=== PATIENT | female | born 1935 | race Caucasian/White ===

== ENCOUNTER 2018-04-25 11:39 | Outpatient (CLI) | payer MEDICARE ==
--- NOTE | 2018-04-25 14:45 | ULT ---
THYROID ULTRASOUND: HISTORY: History of thyroid nodule, seen incidentally on prior ultrasound. COMPARISON: None. FINDINGS: The right thyroid lobe measures 4.2 x 1.8 x 1 cm. There is a 1 cm cyst within the superior pole of t he right thyroid gland. No additional focal lesion is evident. The left thyroid lobe measures 4.2 x 1.7 x 1.4 cm. No focal thyroid lesion is identified. The thyroid isthmus measures 0.22 cm. No focal thyroid lesion is identified. IMPRESSION: Simple anechoic cyst within the superior pole of the right thyroid gland, consistent with a TI-RADS 2 lesion. POS: [facility]
== END 2018-04-25 11:40 | disposition home or self-care (01) ==
LOC: BICULT 11:39
PROVIDERS: ATTEND Internal Medicine Cardiovascular Disease
DX: E04.1 Nontoxic single thyroid nodule (principal)
CPT/HCPCS: 76536

== ENCOUNTER 2021-05-14 10:07 | Observation (INO) | payer MEDICARE ==
[2021-05-14 10:46] LABS: #Eosinphils 0.1 thou/uL (0.0-0.7); #Monocytes 0.8 thou/uL (0.11-0.59); #Neutrophils 9.9 thou/uL (1.40-6.50); %Basophils 0.4 % (0.0-1.0); %Eosinophils 0.9 % (0.0-10.0); %Lymphocytes 8.7 % (21.0-51.0); %Monocytes 6.7 % (0.0-10.0); %Neutrophils 83.4 % (42.0-75.0); Hemoglobin 11.4 g/dL (12.0-16.0); Mean Corpuscular HGB CONC 33.8 g/dL (32.0-36.0); Mean Corpuscular Hemoglobin 34.1 pg (27.0-31.0); Mean Platelet Volume 9.2 fL (7.4-10.4); Platelet Count 173 thou/uL (130-400); RBC Distribution Width 12.2 % (11.5-14.5); Red Blood Cell (RBC) Count 3.34 mill/uL (4.20-5.40); White Blood Cell (WBC) Count 11.9 thou/uL (4.8-10.8)
[2021-05-14 11:19] LABS: ALT (SGPT) 12 U/L (8-55); AST (SGOT) 11 U/L (5-34); Albumin 3.3 g/dL (3.4-4.8); Alkaline Phosphatase 85 U/L (40-110); Anion Gap 13 mmol/L (10-20); BUN (Urea Nitrogen) 36 mg/dL (9.8-20.1); Bilirubin, Total 0.5 mg/dL (0.2-1.2); CK (CPK) 25 U/L (29-168); Calc. Creatinine Clearance 0 mL/min (70-130); Calcium 9.2 mg/dL (7.8-10.44); Carbon Dioxide 25 mmol/L (23-31); Chloride 101 mmol/L (98-107); Globulin 2.8 g/dL (2.4-3.5); Glucose 389 mg/dL (83-110); Lipase Less than 4 U/L (8-78); Protein, Total 6.1 g/dL (5.8-8.1); Sodium 135 mmol/L (136-145)
[2021-05-14] MEDS ORDERED: HumaLOG 300 UNITS/3 ML VIAL SC PRN (12:01)
[2021-05-14] MEDS ORDERED: Senokot S 8.6-50 MG TAB PO PRN (12:01)
[2021-05-14] MEDS ORDERED: Dextrose 5% in Water 1,000 ML IV PRN (12:01)
[2021-05-14] MEDS ORDERED: Sodium Chloride 0.9% 1,000 ML IV SCH (12:01)
[2021-05-14] MEDS ORDERED: Guaifenesin DM 100-10/5 ML UDCUP PO PRN (12:01)
[2021-05-14] MEDS ORDERED: Ondansetron PF 4 MG/2 ML Vial IVP PRN (12:01)
[2021-05-14] MEDS ORDERED: Dextrose 50% Abboject 50 ML SYRINGE SLOW IVP PRN (12:01)
[2021-05-14] MEDS ORDERED: HumaLOG 300 UNITS/3 ML VIAL ONE (13:31)
[2021-05-14] MEDS: HumaLOG 300 UNITS/3 ML VIAL SC PRN ×2 (13:35→16:58)
[2021-05-14 18:38] VITALS: BMI 16.5
[2021-05-14] MEDS: cefTRIAXone\\ROCEPHIN 2 GM in Sodium Chloride 0.9% 100 ML IVPB SCH (19:08)
[2021-05-14] MEDS ORDERED: Rosuvastatin 20 MG TAB PO SCH (21:00)
[2021-05-14] MEDS: Metoprolol Tartrate 25 MG TAB PO SCH (21:17)
[2021-05-14] MEDS: Clindamycin/D5W 600 MG in Premix Bag 1 BAG IVPB SCH (21:19)
[2021-05-14 22:14] LABS: SARS-CoV-2 NAA Rapid Test Not Detected (NotDetected)
[2021-05-14] MEDS: Lantus 1000 UNITS/10 ML VIAL SC SCH ×2 (22:42→23:24)
[2021-05-15] MEDS: HumaLOG 300 UNITS/3 ML VIAL SC PRN ×3 (04:41→18:17)
[2021-05-15] MEDS: Clindamycin/D5W 600 MG in Premix Bag 1 BAG IVPB SCH ×2 (05:59→15:09)
[2021-05-15 07:46] LABS: #Eosinphils 0.2 thou/uL (0.0-0.7); #Lymphocytes 1.1 thou/uL (1.20-3.40); #Monocytes 1.3 thou/uL (0.11-0.59); #Neutrophils 9.7 thou/uL (1.40-6.50); %Basophils 0.3 % (0.0-1.0); %Eosinophils 1.6 % (0.0-10.0); %Lymphocytes 9.2 % (21.0-51.0); %Monocytes 10.2 % (0.0-10.0); %Neutrophils 78.6 % (42.0-75.0); Hemoglobin 10.3 g/dL (12.0-16.0); Mean Corpuscular HGB CONC 32.5 g/dL (32.0-36.0); Mean Platelet Volume 9.2 fL (7.4-10.4); Platelet Count 195 thou/uL (130-400); RBC Distribution Width 12.2 % (11.5-14.5); Red Blood Cell (RBC) Count 3.14 mill/uL (4.20-5.40); White Blood Cell (WBC) Count 12.3 thou/uL (4.8-10.8)
[2021-05-15 08:01] LABS: Anion Gap 13 mmol/L (10-20); BUN (Urea Nitrogen) 31 mg/dL (9.8-20.1); Calc. Creatinine Clearance 28 mL/min (70-130); Calcium 9.1 mg/dL (7.8-10.44); Carbon Dioxide 23 mmol/L (23-31); Chloride 106 mmol/L (98-107); Glucose 79 mg/dL (83-110); Potassium 3.8 mmol/L (3.5-5.1); Sodium 138 mmol/L (136-145)
[2021-05-15] MEDS ORDERED: ALPRAZolam 0.5 MG TAB PO SCH (09:00)
[2021-05-15] MEDS ORDERED: Enoxaparin Sodium 30 MG/0.3 ML SYRINGE SC SCH (09:00)
[2021-05-15] MEDS: Lantus 1000 UNITS/10 ML VIAL SC SCH (09:59)
[2021-05-15] MEDS: Metoprolol Tartrate 25 MG TAB PO SCH (10:01)
[2021-05-15 17:09] VITALS: BP 111/62; TEMP 98
[2021-05-15] MEDS: cefTRIAXone\\ROCEPHIN 2 GM in Sodium Chloride 0.9% 100 ML IVPB SCH (17:57)
== END 2021-05-15 18:28 | disposition home or self-care (01) ==
LOC: ERS 10:07 → ERHOLD 11:47 → T4-B 17:11
PROVIDERS: ADMIT Internal Medicine; ATTEND Internal Medicine
DX: J69.0 Pneumonitis due to inhalation of food and vomit (principal); E11.9 Type 2 diabetes mellitus without complications; I10 Essential (primary) hypertension; E78.5 Hyperlipidemia, unspecified; R00.2 Palpitations; I49.3 Ventricular premature depolarization; Z79.1 Long term (current) use of non-steroidal anti-inflammatories (NSAID); Z79.4 Long term (current) use of insulin; Z79.899 Other long term (current) drug therapy; Z88.0 Allergy status to penicillin; Z20.822 Contact with and (suspected) exposure to COVID-19
CPT/HCPCS: 70551; 71045; 71250; 74230; 80048; 82550; 82962 ×2; 83690; 83880; 84145; 84484; 85025; 93005; 94640 ×3; 97139 ×2; 99285; U0002; 36415; 36416; 80053; 84443; 96372; 96374; 96375; 96376; G0378; J0696; J1650; J1815; J3490; J7050; J7620

== ENCOUNTER 2021-08-30 12:55 | Outpatient (CLI) | payer MEDICARE | END 2021-08-30 12:56 | disposition home or self-care (01) | LOC: RAD 12:55 | PROVIDERS: ATTEND Internal Medicine | DX: R06.00 Dyspnea, unspecified (principal) | CPT/HCPCS: 71046 ==

== ENCOUNTER 2023-04-05 22:28 | Inpatient (IN) | payer MEDICARE ==
[2023-04-05 23:22] VITALS: BMI 17.2
[2023-04-05] MEDS ORDERED: Acetaminophen 325 MG TAB PO PRN (23:41)
[2023-04-05] MEDS ORDERED: Ondansetron PF 4 MG/2 ML Vial IVP PRN (23:41)
[2023-04-05] MEDS ORDERED: Melatonin 3 MG TAB PO PRN (23:44)
[2023-04-06] MEDS ORDERED: Glucagon 1 MG/ML KIT IM PRN (00:41)
[2023-04-06] MEDS ORDERED: Dextrose 50% Abboject 50 ML SYRINGE SLOW IVP PRN (00:41)
[2023-04-06] MEDS ORDERED: HumaLOG 300 UNITS/3 ML VIAL SC PRN (00:41)
[2023-04-06] MEDS ORDERED: Dextrose 5% in Water 1,000 ML IV PRN (00:41)
[2023-04-06] MEDS: metroNIDAZOLE 500 MG in Premix 1 BAG IVPB SCH ×3 (01:40→18:10)
[2023-04-06 05:50] LABS: #Eosinphils 0.2 thou/uL (0.0-0.7); #Monocytes 0.9 thou/uL (0.11-0.59); #Neutrophils 7.4 thou/uL (1.40-6.50); %Basophils 0.2 % (0.0-1.0); %Lymphocytes 13.7 % (21.0-51.0); %Neutrophils 74.6 % (42.0-75.0); Hematocrit 28.3 % (36.0-47.0); Hemoglobin 9.2 g/dL (12.0-16.0); Mean Corpuscular HGB CONC 32.5 g/dL (32.0-36.0); Mean Corpuscular Hemoglobin 33.6 pg (27.0-31.0); Mean Corpuscular Volume 103.3 fl (78.0-98.0); Mean Platelet Volume 11.5 fL (7.4-10.4); Platelet Count 268 10x3/uL (130-400); RBC Distribution Width 12.5 % (11.5-14.5); Red Blood Cell (RBC) Count 2.74 mill/uL (4.20-5.40); White Blood Cell (WBC) Count 9.9 10x3/uL (4.8-10.8)
[2023-04-06 06:12] LABS: Anion Gap 11 mmol/L (10-20); BUN (Urea Nitrogen) 27 mg/dL (9.8-20.1); Calc. Creatinine Clearance 30 mL/min (70-130); Calcium 8.6 mg/dL (7.8-10.44); Carbon Dioxide 26 mmol/L (23-31); Chloride 106 mmol/L (98-107); Estimated GFR 53; Glucose 221 mg/dL (83-110); Potassium 3.9 mmol/L (3.5-5.1); Sodium 139 mmol/L (136-145)
[2023-04-06] MEDS: Famotidine 20 MG TAB PO SCH (08:43)
[2023-04-06] MEDS: HumaLOG 300 UNITS/3 ML VIAL SC PRN (11:41)
[2023-04-06] MEDS ORDERED: ALPRAZolam 0.5 MG TAB PO PRN (15:36)
[2023-04-06 18:55] LABS: Legionella Urinary Ag Negative (Negative); Strep pneumo Urine Ag NEGATIVE (NEGATIVE)
[2023-04-06] MEDS ORDERED: Sertraline 100 MG TAB PO SCH (21:00)
[2023-04-06] MEDS ORDERED: Rosuvastatin 20 MG TAB PO SCH (21:00)
[2023-04-06] MEDS ORDERED: Donepezil HCl 10 MG TAB PO SCH (21:00)
[2023-04-07] MEDS: metroNIDAZOLE 500 MG in Premix 1 BAG IVPB SCH ×2 (00:43→08:22)
[2023-04-07] MEDS: HumaLOG 300 UNITS/3 ML VIAL SC PRN ×2 (05:45→08:24)
[2023-04-07 07:10] LABS: #Eosinphils 0.2 thou/uL (0.0-0.7); #Monocytes 0.5 thou/uL (0.11-0.59); #Neutrophils 5.8 thou/uL (1.40-6.50); %Basophils 0.3 % (0.0-1.0); %Lymphocytes 16.1 % (21.0-51.0); %Neutrophils 75.2 % (42.0-75.0); Hematocrit 29.2 % (36.0-47.0); Hemoglobin 9.3 g/dL (12.0-16.0); Mean Corpuscular HGB CONC 31.8 g/dL (32.0-36.0); Mean Corpuscular Hemoglobin 32.6 pg (27.0-31.0); Mean Corpuscular Volume 102.5 fl (78.0-98.0); Mean Platelet Volume 11.7 fL (7.4-10.4); Platelet Count 293 10x3/uL (130-400); RBC Distribution Width 12.3 % (11.5-14.5); Red Blood Cell (RBC) Count 2.85 mill/uL (4.20-5.40); White Blood Cell (WBC) Count 7.7 10x3/uL (4.8-10.8)
[2023-04-07 07:39] LABS: Anion Gap 13 mmol/L (10-20); BUN (Urea Nitrogen) 25 mg/dL (9.8-20.1); Calc. Creatinine Clearance 31 mL/min (70-130); Calcium 8.7 mg/dL (7.8-10.44); Carbon Dioxide 25 mmol/L (23-31); Chloride 105 mmol/L (98-107); Estimated GFR 57; Glucose 268 mg/dL (83-110); Potassium 3.8 mmol/L (3.5-5.1); Sodium 139 mmol/L (136-145)
[2023-04-07 07:53] VITALS: BP 124/64; TEMP 98.1
[2023-04-07] MEDS: Famotidine 20 MG TAB PO SCH (08:22)
[2023-04-07] MEDS ORDERED: Insulin Glargine 30 UNITS/0.3 ML VIAL SC SCH (09:00)
[2023-04-07] MEDS ORDERED: LevoFLOXacin 500 mg/D5W 500 MG in Premix 1 BAG IVPB SCH (18:00)
== END 2023-04-07 11:29 | disposition home or self-care (01) | DRG 177 ==
LOC: T4-B 22:28
PROVIDERS: ADMIT Internal Medicine; ATTEND Hospitalist
DX: J69.0 Pneumonitis due to inhalation of food and vomit (principal); J96.01 Acute respiratory failure with hypoxia; K21.9 Gastro-esophageal reflux disease without esophagitis; I12.9 Hypertensive chronic kidney disease with stage 1 through stage 4 chronic kidney disease, or unspecified chronic kidney disease; E11.22 Type 2 diabetes mellitus with diabetic chronic kidney disease; N18.30 Chronic kidney disease, stage 3 unspecified; E78.5 Hyperlipidemia, unspecified; Z88.0 Allergy status to penicillin; Z79.4 Long term (current) use of insulin; Z79.899 Other long term (current) drug therapy; Z98.890 Other specified postprocedural states; Z83.3 Family history of diabetes mellitus; D63.1 Anemia in chronic kidney disease
CPT/HCPCS: 36415; 36416; 80048; 84145; 85025; 87449; 87899; J1815